=== PATIENT | male | born 1960 | race Hispanic/Latino ===

== ENCOUNTER → 2025-07-12 | Outpatient (CLI) | payer BC, SELFPAY ==
[2025-07-12 10:40] LABS: Anion Gap 10 (7-18); BUN 24 mg/dL (4-19); BUN/Creat Ratio 16.4 RATIO (10-20); Calcium,Total 9.8 mg/dL (7.6-11.0); Carbon Dioxide 26.5 mmol/L (20.0-29.0); Chloride 103 mmol/L (96-106); Cholesterol 240 mg/dL (<=200); Glucose 140 mg/dL (70-99); Low Density Lipoprotein Calc. 151 mg/dL; Potassium 4.1 mmol/L (3.5-5.1); Triglycerides 233 mg/dL; Very Low Density Lipoprotein 47 mg/dL (5-40); cholesterol:hdl ratio screen 5.14
== END | disposition home or self-care (01) ==
LOC: MTLAB 08:46
PROVIDERS: PCP Family Medicine; Referring Provider Family Medicine; Visit Provider Family Medicine
DX: Z00.00 Encounter for general adult medical examination without abnormal findings (principal); E11.9 Type 2 diabetes mellitus without complications
CPT/HCPCS: 36415; 80048; 80061; 83036; 86480